=== PATIENT | female | born 1945 ===

== ENCOUNTER 2019-06-18 22:53 | Outpatient (CLI) | payer MEDICARE, OTHER | END 2019-06-18 23:59 | disposition short-term general hospital (02) | LOC: EMS 22:53 | PROVIDERS: ATTEND Surgery | DX: R55 Syncope and collapse (principal); R09.89 Other specified symptoms and signs involving the circulatory and respiratory systems; R42 Dizziness and giddiness | CPT/HCPCS: A0425; A0427 ==